=== PATIENT | female | born 1990 | race Caucasian/White ===

== ENCOUNTER 2023-09-26 08:42 | Emergency (ER) | payer BC, SELFPAY ==
[2023-09-26 08:43] VITALS: BP 142/99; PULSE 103; RESP 16; TEMP 36.3; O2SAT 97; BMI 51.5
--- NOTE | 2023-09-26 08:57 | EX.ED.DYSGE1 ---
HPI History of Present Illness Chief Complaint: Nausea/Vomiting Informant: patient Onset/Context/Timing Onset: Yesterday Narrative Narrative: Patient presents with nausea and vomiting since late last evening. She has had some mild diarrhea. She felt as if she may have a fever but did not check her temperature. She complains of some mild upper abdominal pain. Patient states that she had 3 nephews staying with her this week that had similar symptoms. PFSH PFSH Home Medications ondansetron 4 mg disintegrating tablet 4 mg PO Q8H PRN PRN Nausea #10 tabs 09/26/23 [Rx Last Taken Unknown] promethazine 25 mg tablet 25 mg PO TID PRN nausea and vomiting #10 tabs 09/26/23 [Rx Last Taken Unknown] Allergy/AdvReac Type Severity Reaction Status Date / Time No Known Allergies Allergy Verified 09/26/23 08:45 Surgical History History of cholecystectomy Social History Smoking Status: Never smoker ROS ROS ED Constitutional Constitutional ED: Reports fever(s) and subjective; Denies chills Eyes Eyes: Denies change in vision or discharge from eye(s) ENT ENT ED: Denies discharge from eye(s), rhinorrhea or sore throat Cardiovascular Cardiovascular: Denies chest pain or palpitations Respiratory/Chest Respiratory/Chest: Denies cough or dyspnea Gastrointestinal Gastrointestinal: Reports abdominal pain, diarrhea, nausea and vomiting Genitourinary Genitourinary ED: Denies dysuria Musculoskeletal Musculoskeletal: Reports back pain; Denies extremity pain Integumentary Denies Abrasions or rash Neurologic Neurologic: Denies headache(s) or weakness Psychiatric Psychiatric: Denies anxiety or depression Allergic/Immunologic Allergic/Immunologic ED: Denies lip swelling or urticaria EXAM Physical Exam Const Vital Signs: 09/26/23 08:43 Temperature 97.4 F L Temperature Source Temporal Pulse Rate 103 H Respiratory Rate 16 Blood Pressure 142/99 H Blood Pressure Mean 113 Pulse Ox 97 Oxygen Delivery Method Room Air Positive well nourished and well developed General Appearance ED: well developed HEENT Reports dry mucous membranes Mouth ED: Yes dry mucous membranes Mouth: dry mucous membranes Eyes EOMs intact bilaterally Chest Wall inspection of chest normal and palpation of chest normal Resp normal respiratory effort and clear to auscultation bilaterally Cardio regular rate and regular rhythm GI GI Narrative: Abdomen soft with mild diffuse tenderness. No guarding or rebound. Hypoactive bowel sounds. Extremity normal to inspection Neuro oriented x3 and no sensory deficits noted Motor Exam: strength 5/5 throughout Psych mental status grossly normal Skin no rashes or lesions noted MDM MDM MDM Narrative Medical decision making narrative: IV line established. Patient given Toradol and Zofran for pain and nausea. Labwork obtained to evaluate for leukocytosis, anemia, and electrolyte derangement. History & Record Review Discussion w/independent historian: Patient Lab Data Attestation: I reviewed the patient's lab results. Labs: Laboratory Results - last 24 hr 09/26/23 10:05 WBC 17.6 H RBC 4.61 Hgb 13.2 Hct 41.5 MCV 90.0 MCH 28.6 MCHC 31.8 L RDW Std Deviation 47.7 H RDW Coeff of Monique 14.5 Plt Count 318 MPV 9.0 Immature Gran % (Auto) 0.300 Neut % (Auto) 91.3 H Lymph % (Auto) 3.4 L [place] % (Auto) 4.1 Eos % (Auto) 0.6 Baso % (Auto) 0.3 Absolute Neuts (auto) 16.0 H Absolute Lymphs (auto) 0.60 L Nucleated RBC % 0 Platelet Estimate ADEQUATE Stomatocytes 1+ Sodium 136 Potassium 3.8 Chloride 109 H Carbon Dioxide 21.0 Anion Gap 6 BUN 12 Creatinine 0.66 Estim Creat Clear Calc 145.17 Est GFR (MDRD) Af Amer 132 Est GFR (MDRD) Non-Af 109 BUN/Creatinine Ratio 18.1 Glucose 125 H Calcium 7.9 L Total Bilirubin 0.60 Direct Bilirubin 0.12 AST 21 ALT 42 Alkaline Phosphatase 100 Total Protein 6.7 Albumin 3.1 L Globulin 3.6 Lipase 26 Serum , Qual NEGATIVE Treatment and Re-Evaluation :: There was a slight delay in getting the patient's IV, so she was given a dose of IM Phenergan while IV was being established. She then did receive Toradol, Zofran, and IV fluids. CBC was elevated white count at 17.6 with 91% neutrophils. This is likely demargination from acute vomiting. Hemoglobin is normal at 13.2. Chemistry studies are unremarkable. LFTs are normal and test is negative. On repeat evaluation patient reports feeling much improved. She is tolerating p.o. fluids at this time. She will be given prescriptions for both Zofran and Phenergan that she can have on hand at home to help control symptoms. Return instructions provided. Discharge Plan Triage Chief Complaint: Nausea/Vomiting ED Provider: Denise Sotelo Dx/Rx/DC Orders Clinical Impression: Gastroenteritis Instructions: ED Gastroenteritis, Viral (Adult) Prescriptions: New ondansetron 4 mg tablet,disintegrating 4 mg PO Q8H PRN PRN (Reason: Nausea) Qty: 10 0RF promethazine 25 mg tablet 25 mg PO TID PRN (Reason: nausea and vomiting) Qty: 10 0RF Primary Care Provider: Care Physician,No Primary Referrals: Karen Perales MD [Med Staff - [employer]] - As Needed Care Physician,No Primary [Primary Care Provider] - Disposition Disposition: Home, Self Care
[2023-09-26] MEDS: Ketorolac 30 MG/ML Syringe IV (09:27)
[2023-09-26] MEDS: Ondansetron 4 MG/2 ML Vial IV (09:27)
[2023-09-26] MEDS: 0.9% Normal Saline (1000mL) 1,000 ML 1000 ML IV (09:28)
[2023-09-26] MEDS: proMETHazine 25 MG/ML Syringe 12.5 MG IM (09:40)
[2023-09-26 10:11] LABS: Basophil# 0.05 X10^3/uL; Basophil% 0.3 % (0-1); Eosinophil# 0.11 X10^3/uL; Eosinophils% 0.6 % (0-5); Hematocrit 41.5 % (37-47); Hemoglobin 13.2 g/dL (12.0-15.0); Lymphocyte % 3.4 % (19-41); Mean Corp Hgb Conc 31.8 g/dL (32-36); Mean Corpuscular Hgb 28.6 pg (27.0-32.0); Monocyte# 0.72 X10^3/uL; Monocyte% 4.1 % (0-10); NRBC Flagged by Analyzer 0 % (0-5); Neutrophil # 16.02 X10^3/uL (2.7-7.7); Neutrophil % 91.3 % (47-70); POSITIVE DIFFERENTIAL YES; Platelet Count 318 K/mm3 (150-450); RBC Distribution Width CV 14.5 % (11.6-14.6); RBC Distribution Width SD 47.7 fl (35.1-43.9); Red Blood Count 4.61 M/mm3 (4.2-5.4); White Blood Count 17.6 K/mm3 (4.4-11.0)
[2023-09-26 10:12] LABS: Differential Indicated SCAN CRITERIA MET
[2023-09-26 10:33] LABS: AST(SGOT) 21 U/L (15-37); Alanine Aminotransfer ALT/SGPT 42 U/L (13-56); Albumin, Serum 3.1 g/dL (3.2-5.0); Alkaline Phosphatase 100 U/L (45-117); Anion Gap 6 (5-15); BUN 12 mg/dL (7-18); BUN/Creat Ratio 18.1 RATIO (10-20); Bilirubin, Direct 0.12 mg/dL (0.00-0.30); Calcium,Total 7.9 mg/dL (8.5-10.1); Chloride 109 mmol/L (98-107); Creatinine, Serum 0.66 mg/dL (0.55-1.02); EST Glomerular Filtration Rate 109 mL/min (>60); Est Glom Filt Rate - Afr Amer 132 mL/min (>60); Estimated Creatinine Clearance 145.17 ml/min; Globulin 3.6 g/dL (2.2-4.2); Glucose 125 mg/dL (74-106); Lipase 26 U/L (13-75); Potassium 3.8 mmol/L (3.5-5.1); Protein, Total 6.7 g/dL (6.4-8.2); Sodium Level 136 mmol/L (136-145)
[2023-09-26 10:40] LABS: Internal QC Validated? YES +Cl - CLEAR BKGD; Platelet Estimate ADEQUATE (ADEQ); Pregnancy, Serum, hCG Quali. NEGATIVE Negative
[2023-09-26 10:41] LABS: Stomatocyte 1+
[2023-09-26 10:43] VITALS: BP 126/78; PULSE 64; RESP 18; O2SAT 97
[2023-09-26 11:00] VITALS: BP 138/76; PULSE 64; RESP 18; TEMP 36.4; O2SAT 99
== END 2023-09-26 11:04 | disposition home or self-care (01) ==
PROVIDERS: Emergency Provider Emergency Medicine; Visit Provider Emergency Medicine
DX: K52.9 Noninfective gastroenteritis and colitis, unspecified (principal); Z90.49 Acquired absence of other specified parts of digestive tract
CPT/HCPCS: 36415; 80048; 80076; 83690; 84703; 85025; 96361; 96372; 96374; 96375; 99283; J7030; J2405